=== PATIENT | female | born 1995 | race Caucasian/White ===

== ENCOUNTER 2018-01-29 06:38 | Day surgery (SDC) | payer OTHER ==
[~2018-01-29 06:38] MED LIST: LACTATED RINGERS 1000 ML IV PRN; LIDOCAINE 0.5% INJ-PF (5 MG/ML) 50 ML SDV SUBCUT PRN; SCOPOLAMINE HYDROBROMIDE 1.5 MG PATCH.TD72 TD PRN
[2018-01-29] MEDS ORDERED: MIDAZOLAM 2 MG/2 ML INJ ONE (07:04)
[2018-01-29] MEDS ORDERED: FENTANYL CITRATE INJ/PF 100 MCG/2 ML AMPUL ONE (07:04)
[2018-01-29] MEDS ORDERED: DEXAMETHASONE SOD PHOS INJ 10 MG/1 ML VIAL ONE (07:05)
[2018-01-29] MEDS ORDERED: PROPOFOL INJ 200 MG/20 ML VIAL IV ONE (07:05)
[2018-01-29] MEDS ORDERED: SUCCINYLCHOLINE CHLORIDE INJ 200 MG/10 ML VIAL ONE (07:05)
[2018-01-29] MEDS ORDERED: ONDANSETRON HCL INJ/PF 4 MG/2 ML SDV ONE (07:05)
[2018-01-29] MEDS ORDERED: HYDROMORPHONE HCL INJ/PF 2 MG/ML AMPULE ONE (07:05)
[2018-01-29] MEDS ORDERED: CEFAZOLIN 2 GM/D5W RTU 2 GM/50 ML RTUPB IV PRN (07:18)
[2018-01-29] MEDS ORDERED: BUPIVACAINE HCL 0.5%/EPI 1:200000 INJ 1.8 ML CARTRIDGE ONE (07:19)
[2018-01-29] MEDS ORDERED: ACETAMINOPHEN 100 ML IV ONE (08:08)
--- NOTE | 2018-01-30 14:39 | SURGICARE OPERATIVE REPORT E ---
[facility] Operative Report NAME: JANINE MG AGE: 22Y DATE OF SURGERY: 01/29/2018 ROOM: PREOPERATIVE DIAGNOSES: 1. 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 2. Chronic scalp pain. 3. Chronic headaches. POSTOPERATIVE DIAGNOSES: 1. 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 2. Chronic scalp pain. 3. Chronic headaches. OPERATION PERFORMED: Endoscopic removal of the right parietal calvarial osteoma with Info[employer] bone bur/shaver. SURGEON: CHRYSTAL BARROW D.O. ANESTHETIC: General endotracheal tube. ANESTHESIA STAFF: Young ESTIMATED BLOOD LOSS: 5 mL. FLUIDS: 850 mL. COMPLICATIONS: None. DRAINS: None. SPONGE COUNT: Verified. MATERIALS FORWARDED SPECIMEN: None. FINDINGS: 1. Right parietal area outer table of the calvarium osteoma raised measuring approximately 15 x 15 mm with dimensions. 2. Palpable scalp fullness in that area. INDICATIONS: This is a 22-year-old white female, active duty member, who was seen and evaluated in the [facility] office. The patient was referred for and she complained of a chronic history of right scalp fullness, chronic scalp pain in that area, and chronic headaches. The patient has noted that the nodule in that area has increased in size over time. The patient underwent CT imaging and was noted to have this osteoma finding. After extensive discussion with the patient, recommendation and plan was made to endoscopically address this area using bone shaving burs to remove the osteoma. The procedure and all of its risks and complications were all discussed in detail with the patient who has desired to have this removed to move beyond and resolve her chronic scalp pain and headaches. She voiced an understanding of the described surgical plan, agreed to proceed, and consent was obtained. DESCRIPTION OF PROCEDURE: The patient was taken to the main operating room and placed on the operating room table in the supine position. Appropriate monitors were placed. Using mask and IV access, general anesthesia was induced. The patient was next transorally intubated without difficulty. The patient was positioned and prepped for right scalp/head surgery. The hair and scalp in the area were prepped for surgery. There were planned incision sites marked. These areas were infiltrated with local anesthetic with epinephrine. At this point, the patient was prepped and draped for scalp/head surgery. The planned surgical incision sites were sharply incised down through to the level of the periosteum/bone. There was a soft tissue/scalp area that was elevated in a subperiosteal plane to completely expose the osteoma, which was clearly identified endoscopically without difficulty. At this point, a Vocal[employer] bone bur/shaver was used to remove the osteoma and contour the area without difficulty. Once complete, the area was thoroughly irrigated and there was reasonable hemostasis noted. The endoscopic and shaving equipment was removed. At this point, the 2 incision sites were reapproximated using Monocryl suture as the deep layer followed by placement of karen to reapproximate the skin margins. At this point, the area was cleaned followed by placement of bacitracin ointment, a Telfa dressing, and last a Fluff pressure dressing was applied. The patient was then returned to the anesthesia staff in stable condition and was allowed to emerge from general anesthesia. The patient was extubated in the main operating room and was then transported to the post-anesthesia recovery unit in stable condition. There were no complications. DICTATING PHYSICIAN: CHRYSTAL BARROW D.O. [id number] PHY#: [id number] ID: [id number] JOB#: [id number] ACCT: [id number] cc:CHRYSTAL BARROW D.O. >
== END 2018-01-29 11:01 | disposition home or self-care (01) ==
LOC: SC 06:38
PROVIDERS: ATTEND Otolaryngology
DX: D16.4 Benign neoplasm of bones of skull and face (principal); R51 Headache; F17.210 Nicotine dependence, cigarettes, uncomplicated
CPT/HCPCS: 64999; J2250; J3490; J1170; J0330; J2405; J2704; J1100; J0690; J0131; 190; J3010

== ENCOUNTER 2018-12-28 18:13 | Emergency (ER) | payer OTHER ==
--- NOTE | 2018-12-28 19:44 | ER Document Report ---
ED Medical Screen (RME) - General Chief Complaint: Abdominal Pain Stated Complaint: ABDOMINAL PAIN Time Seen by Provider: 12/28/18 19:42 Primary Care Provider: STEVE MONCADA DO [Primary Care Provider] - Follow up as needed Mode of Arrival: Ambulatory Information source: Patient, [facility] Records Notes: 23-year-old female presents with right lower quadrant pain that started 4 days prior to arrival. Patient states that the pain has progressively worsened and was seen at [facility] yesterday where they performed a CT which showed a "swollen appendix". She states that they advised her to return if pain worsens or she developed a fever which she reports she had earlier today of 101 but took Motrin for. I have greeted and performed a rapid initial assessment of this patient. A comprehensive ED assessment and evaluation of the patient, analysis of test results and completion of medical decision making process we will be contacted by additional ED providers. PHYSICAL EXAMINATION: Vital signs reviewed-tachycardic GENERAL: Well-appearing, well-nourished and in no acute distress. LUNGS: No respiratory distress Musculoskeletal: Normal range of motion NEUROLOGICAL: Normal speech, normal gait. PSYCH: Normal mood, normal affect. SKIN: Warm, Dry, normal turgor, no rashes or lesions noted. TRAVEL OUTSIDE OF THE [place] IN LAST 30 DAYS: No - HPI Onset: Other Onset/Duration: Persistent Quality of pain: Stabbing Severity: Moderate Associated Symptoms: Abdominal pain, Fever Exacerbated by: Movement Relieved by: Remaining still Similar symptoms previously: Yes Recently seen / treated by doctor: Yes - Related Data Smoking: Non-smoker Frequency of alcohol use: None Drug Abuse: None Allergies/Adverse Reactions: luis Allergy (Verified 01/25/18 11:00) rash pomegranate Allergy (Verified 01/25/18 11:00) rash Past Medical History - Past Medical History Cardiac Medical History: Denies: Hx Heart Attack, Hx Hypertension Pulmonary Medical History: Denies: Hx Asthma Neurological Medical History: Denies: Hx Cerebrovascular Accident, Hx Seizures GI Medical History: Denies: Hx Hepatitis, Hx Hiatal Hernia, Hx Ulcer Infectious Medical History: Denies: Hx Hepatitis Past Surgical History: Denies: Hx Hysterectomy, Hx Mastectomy, Hx Open Heart Surgery, Hx Pacemaker Doctor's Discharge - Discharge Referrals: STEVE MONCADA DO [Primary Care Provider] - Follow up as needed
[2018-12-28] MEDS ORDERED: MORPHINE SULFATE 10 MG/ML INJ IV ONE (19:45)
[2018-12-28] MEDS ORDERED: ONDANSETRON HCL INJ/PF 4 MG/2 ML SDV IV ONE ×2 (19:45→21:06)
[2018-12-28 20:18] LABS: ABSOLUTE BASOPHILS # (AUTO) 0.1 10^3/uL (0.0-0.2); ABSOLUTE EOSINOPHILS # (AUTO) 0.3 10^3/uL (0.0-0.6); ABSOLUTE NEUT (AUTO) 8.8 10^3/uL (1.7-8.2); BASOPHILS % (AUTO) 0.8 % (0-2); EOSINOPHILS % (AUTO) 2.3 % (0-6); LYMPHOCYTES % (AUTO) 22.7 % (13-45); MEAN CORPUSCULAR HEMOGLOBIN 29.1 pg (27.0-33.4); MEAN CORPUSCULAR HGB CONC 34.2 g/dL (32.0-36.0); MEAN CORPUSCULAR VOLUME 85 fl (80-97); MONOCYTES % (AUTO) 7.4 % (3-13); PLATELET COUNT 312 10^3/uL (150-450); RED BLOOD COUNT 4.82 10^6/uL (3.72-5.28); RED CELL DISTRIBUTION WIDTH 13.2 % (11.5-14.0); SEGMENTED NEUTROPHILS % (AUTO) 66.8 % (42-78); TOTAL CELLS COUNTED % (AUTO) 100 %; WHITE BLOOD COUNT 13.1 10^3/uL (4.0-10.5)
[2018-12-28 20:29] LABS: AMORPHOUS SEDIMENT,URINE TRACE /HPF; APPEARANCE,URINE CLOUDY; BILIRUBIN,URINE NEGATIVE (NEGATIVE); COLOR,URINE AMBER; GLUCOSE, URINE NEGATIVE (NEGATIVE); KETONES,URINE NEGATIVE (NEGATIVE); LEUKOCYTE ESTERASE,URINE NEGATIVE (NEGATIVE); NITRITE,URINE POSITIVE (NEGATIVE); PROTEIN,URINE NEGATIVE (NEGATIVE); URINE SPECIFIC GRAVITY 1.017; UROBILINOGEN,URINE NEGATIVE mg/dL (<2.0)
[2018-12-28 20:40] LABS: ALANINE AMINOTRANSFERASE 16 U/L (9-52); ALBUMIN 4.9 g/dL (3.5-5.0); ALKALINE PHOSPHATASE 100 U/L (38-126); ANION GAP 12 (5-19); ASPARTATE AMINO TRANSFERASE 19 U/L (14-36); BILIRUBIN,DIRECT 0.2 mg/dL (0.0-0.4); BILIRUBIN,TOTAL 0.3 mg/dL (0.2-1.3); BLOOD UREA NITROGEN 10 mg/dL (7-20); C-REACTIVE PROTEIN 11.9 mg/L (<10.0); CALCIUM 10.2 mg/dL (8.4-10.2); CARBON DIOXIDE 25 mmol/L (22-30); CHLORIDE 102 mmol/L (98-107); GLUCOSE 79 mg/dL (75-110); POTASSIUM 5.1 mmol/L (3.6-5.0); SODIUM 139.1 mmol/L (137-145); TOTAL PROTEIN 8.3 g/dL (6.3-8.2)
[2018-12-28] MEDS ORDERED: HYDROMORPHONE HCL INJ/PF 2 MG/ML AMPULE IV ONE (21:04)
[2018-12-28] MEDS ORDERED: NORMAL SALINE 1000 ML 1,000 ML IV ONE (21:04)
--- NOTE | 2018-12-28 21:05 | ER Document Report ---
ED GI/ - General Chief Complaint: Abdominal Pain Stated Complaint: ABDOMINAL PAIN Time Seen by Provider: 12/28/18 19:42 Primary Care Provider: STEVE MONCADA DO [NO LOCAL MD] - Follow up as needed Mode of Arrival: Ambulatory Notes: 23-year-old female patient, no significant past medical history to the emergency department complaining of a one-week history of worsening right lower quadrant pain. Fever at home. Loss of appetite. Pain is getting worse. Was seen yesterday at [facility] where she had a pelvic exam, labs, CT scan of the abdomen and pelvis, surgical consult. Was told that her appendix did not look 100% normal but that it was "not ready to come out yet". She was instructed to go back for recheck of her symptoms are getting worse. States that she did not feel comfortable going back to the [facility] so came here instead. States that the pain is gotten severe. TRAVEL OUTSIDE OF THE [place] IN LAST 30 DAYS: No - HPI Patient complains to provider of: Abdominal pain Onset: Last week Timing/Duration: Gradual, Worse Quality of pain: Dull, Throbbing Severity at maximum: Moderate Severity in ED: Moderate Pain Level: 3 Location: RLQ Vaginal bleeding (Compared to normal period): None Menstrual period history: denies: Abnormal, Irregular, Missed, Sexual history: Active. denies: New partner, Multiple partners Associated symptoms: Nausea Exacerbated by: Standing, Movement Relieved by: Denies Similar symptoms previously: Yes Recently seen / treated by doctor: Yes - Related Data Allergies/Adverse Reactions: luis Allergy (Verified 01/25/18 11:00) rash pomegranate Allergy (Verified 01/25/18 11:00) rash Past Medical History - General Information source: Patient, [facility] Records - Social History Smoking Status: Current Every Day Smoker Chew tobacco use (# tins/day): No Frequency of alcohol use: None Drug Abuse: None Family History: Reviewed & Not Pertinent Patient has suicidal ideation: No Patient has homicidal ideation: No - Past Medical History Cardiac Medical History: Denies: Hx Heart Attack, Hx Hypertension Pulmonary Medical History: Denies: Hx Asthma Neurological Medical History: Denies: Hx Cerebrovascular Accident, Hx Seizures Renal/ Medical History: Denies: Hx Peritoneal Dialysis GI Medical History: Denies: Hx Hepatitis, Hx Hiatal Hernia, Hx Ulcer Infectious Medical History: Denies: Hx Hepatitis Past Surgical History: Denies: Hx Hysterectomy, Hx Mastectomy, Hx Open Heart Surgery, Hx Pacemaker Review of Systems - Review of Systems Notes: Constitutional: denies: Chills, Diaphoresis, +Fever, EENT: denies: Eye discharge, Blurred vision, Tearing, Double vision, Nose congestion, Nose discharge, Throat swelling, Mouth pain Cardiovascular: denies: Palpitations, Heart racing, Orthopnea, Dyspnea, Chest pain Respiratory: denies: Cough, Hurts to breathe, Wheezing, Shortness of breath Gastrointestinal: Abdominal pain, right lower quadrant abdominal pain, nausea Genitourinary: denies: Burning, Dysuria, Discharge, Frequency, Flank pain, Hematuria Musculoskeletal: denies: Joint pain, Joint swelling, Muscle pain, Muscle stiffness, back pain Hematologic/Lymphatic: denies: Anemia, Easy bleeding, Easy bruising, Blood clots Neurological/Psychological: denies: Confusion, Dementia, Depression, Loss of con sciousness Skin: No lesions, no masses, no skin breakdown, no abscesses Physical Exam - Vital signs Vitals: Temp Pulse Resp BP Pulse Ox 98.2 F 83 19 97/65 L 100 12/28/18 21:16 12/28/18 21:16 12/28/18 21:16 12/28/18 21:16 12/28/18 21:16 Interpretation: Normal - General General appearance: Appears well, Alert - HEENT Head: Normocephalic, Atraumatic Eyes: Normal Pupils: PERRL - Respiratory Respiratory status: No respiratory distress Chest status: Nontender Breath sounds: Normal Chest palpation: Normal - Cardiovascular Rhythm: Regular Heart sounds: Normal auscultation Murmur: No - Abdominal Inspection: Normal Distension: No distension Bowel sounds: Normal Tenderness: Tender, McBurney's point, Guarding, Rebound Organomegaly: No organomegaly - Back Back: Normal, Nontender - Extremities General upper extremity: Normal inspection, Nontender, Normal color, Normal ROM, Normal temperature General lower extremity: Normal inspection, Nontender, Normal color, Normal ROM, Normal temperature, Normal weight bearing. No: Margarita's sign - Neurological Neuro grossly intact: Yes Cognition: Normal Orientation: AAOx4 Duncan Coma Scale Eye Opening: Spontaneous [place] Coma Scale Verbal: Oriented [place] Coma Scale Motor: Obeys Commands Duncan Coma Scale Total: 15 Speech: Normal Motor strength normal: LUE, RUE, LLE, RLE Sensory: Normal - Psychological Associated symptoms: Normal affect, Normal mood - Skin Skin Temperature: Warm Skin Moisture: Dry Skin Color: Normal Course - Re-evaluation Re-evalutation: 12/28/18 21:38 Patient has an elevated WBC count at 13,000, reported fever at home, symptoms getting worse over the last week with pain in the right lower quadrant, recent CT scan yesterday which reportedly was slightly abnormal for the appendix. Today presents with worsening pain in the right lower quadrant with guarding and rebound. Patient had a pelvic exam yesterday and was reportedly normal. Will page surgery at this time. 12/28/18 21:[address] Castaneda 12/28/18 22:26 I have spoken to [address] Kay and he does not want a repeat CT scan of the abdomen and pelvis with oral and IV contrast. I have started patient on antibi otics, fluids, pain medicine, nausea medicine. I have sent patient over to Dr. Lopez for review of the CT scan and paging of the surgeon when results are back. Laboratory 12/28/18 12/28/18 12/28/18 19:55 19:56 19:56 WBC 13.1 H RBC 4.82 Hgb 14.0 Hct 41.0 MCV 85 MCH 29.1 MCHC 34.2 RDW 13.2 Plt Count 312 Seg Neutrophils % 66.8 Lymphocytes % 22.7 Monocytes % 7.4 Eosinophils % 2.3 Basophils % 0.8 Absolute Neutrophils 8.8 H Absolute Lymphocytes 3.0 Absolute Monocytes 1.0 Absolute Eosinophils 0.3 Absolute Basophils 0.1 Sodium 139.1 Potassium 5.1 H Chloride 102 Carbon Dioxide 25 Anion Gap 12 BUN 10 Creatinine 0.75 Est GFR ( Amer) > 60 Est GFR (Non-Af Amer) > 60 Glucose 79 Calcium 10.2 Total Bilirubin 0.3 Direct Bilirubin 0.2 Neonat Total Bilirubin Not Reportable Neonat Direct Bilirubin Not Reportable Neonat Indirect Bili Not Reportable AST 19 ALT 16 Alkaline Phosphatase 100 C-Reactive Protein 11.9 H Total Protein 8.3 H Albumin 4.9 Urine Color ALDO Urine Appearance CLOUDY Urine pH 7.0 Ur Specific [place] 1.017 Urine Protein NEGATIVE Urine Glucose (UA) NEGATIVE Urine Ketones NEGATIVE Urine Blood NEGATIVE Urine Nitrite POSITIVE H Urine Bilirubin NEGATIVE Urine Urobilinogen NEGATIVE Ur Leukocyte Esterase NEGATIVE Urine WBC (Auto) 1 Urine RBC (Auto) 0 Urine Bacteria (Auto) 1+ Squamous Epi Cells Auto 2 Amorphous Sediment Auto TRACE Urine Mucus (Auto) FEW Urine Ascorbic Acid NEGATIVE Urine HCG, Qual NEGATIVE - Vital Signs Vital signs: Temp Pulse Resp BP Pulse Ox 98.2 F 83 19 97/65 L 100 12/28/18 21:16 12/28/18 21:16 12/28/18 21:16 12/28/18 21:16 12/28/18 21:16 - Laboratory Result Diagrams: 12/28/18 19:56 12/28/18 19:56 Laboratory results interpreted by me: 12/28/18 12/28/18 12/28/18 19:55 19:56 19:56 WBC 13.1 H Absolute Neutrophils 8.8 H Potassium 5.1 H C-Reactive Protein 11.9 H Total Protein 8.3 H Urine Nitrite POSITIVE H Discharge - Discharge Clinical Impression: Right lower quadrant abdominal pain Referrals: STEVE MONCADA DO [NO LOCAL MD] - Follow up as needed
[2018-12-28] MEDS ORDERED: CEFOXITIN INJ 1 GM VIAL IV ONE (21:45)
[2018-12-29] MEDS ORDERED: HYDROMORPHONE HCL INJ/PF 2 MG/ML AMPULE IV ONE (00:25)
--- NOTE | 2018-12-29 00:33 | RADIOLOGY REPORT (SQ) ---
EXAM DESCRIPTION: CT ABDOMEN PELVIS WITH IV CONTRAST COMPLETED DATE/TME: 12/28/2018 00:00 CLINICAL HISTORY: 23 years, Female, rlq abd pain COMPARISON: None. TECHNIQUE: 397 Images stored on PACS. All CT scanners at this facility use dose modulation, iterative reconstruction, and/or weight based dosing when appropriate to reduce radiation dose to as low as reasonably achievable (ALARA). [facility]: Dose Right [facility]: CareDose [facility]: Dose Right [facility]: Teradose 4D [facility]: Smart [place] LIMITATIONS: None. FINDINGS: Limited evaluation of the lung bases is unremarkable. Osseous structures are grossly intact. The liver, spleen, adrenal glands, pancreas, kidneys are unremarkable. Gallbladder is present. No evidence for bowel obstruction. Abundant stool in the colon. Normal appendix. No free air or free fluid. IMPRESSION: Abundant stool in the colon. Remainder unremarkable TECHNICAL DOCUMENTATION: Quality ID # 436: Final reports with documentation of one or more dose reduction techniques (e.g., Automated exposure control, adjustment of the mA and/or kV according to patient size, use of iterative reconstruction technique) copyright 2011 [employer]- All Rights Reserved
--- NOTE | 2018-12-29 03:28 | RADIOLOGY REPORT (SQ) ---
EXAM DESCRIPTION: US TRANSVAGINAL COMPLETED DATE/TME: 12/29/2018 01:14 CLINICAL HISTORY: 23 years, Female, right sided pain COMPARISON: CT from today's date TECHNIQUE: Transverse and longitudinal transvaginal sonographic images of the pelvis LIMITATIONS: None. FINDINGS: Uterus measures 7.7 x 3.1 x 4.1 cm. Endometrium measures 3.1 mm. Myometrium is homogenous. Right ovary measures 3.2 x 2.3 x 2.1 cm, left ovary 2.6 x 1.8 x 3.2 cm. Doppler and spectral analysis with color flow shows arterial and venous flow to both ovaries. No solid adnexal mass. No free fluid. IMPRESSION: Unremarkable exam copyright 2010 [employer]- All Rights Reserved
[2018-12-29] MEDS ORDERED: HYDROCODONE/ACETAMINOPHEN 5-325 MG (6 TAB/ER DISP) PO PRN (04:00)
--- NOTE | 2018-12-29 04:04 | PDOC CONSULTATION ---
Consultation Consult Date: 12/29/18 Consult reason:: RLQ pain History of Present Illness Patient complains of: RLQ pain x 4 days History of Present Illness: JANINE MG is a 23 year old female with a hx of depression, who has recently taken herself off Prozac due to worsening of her depression symptoms. She comes to the ED with a 4 day hx of RLA abdominal pain, worsened by motion. She denies nausea, vomiting, change of bowel habits, fever. She went to the [facility] yesterday woith similar complaints and a CT scan A/P was done and a qu estionable enlarged appendix and told to return if her symptoms would have become worse. Past Medical History Cardiac Medical History: Denies: Myocardial Infarction, Hypertension Pulmonary Medical History: Denies: Asthma Neurological Medical History: Denies: Seizures GI Medical History: Denies: Hepatitis, Hiatal Hernia Hematology: Denies: Anemia, Sickle Cell Disease Past Surgical History Past Surgical History: Denies: Amputation, Hysterectomy, Mastectomy, Pacemaker Social History Smoking Status: Current Every Day Smoker Family History Family History: Reviewed & Not Pertinent Parental Family History Reviewed: Yes - CAD Children Family History Reviewed: No Sibling(s) Family History Reviewed.: No Medication/Allergy Home Medications: Aspirin/Acetaminophen/Caffeine [Excedrin Migraine Caplet] 1 tab PO PRN PRN 01/25/18 Diphenhydramine HCl [Benadryl Allergy] 1 tab PO PRN PRN 01/25/18 Amox Tr/Potassium Clavulanate [Augmentin 875-125 mg Tablet] 1 tab PO BID 01/29/18 Bacitracin 1 drop TOP BID 01/29/18 Etonogestrel [Nexplanon] 68 mg SQ .EVERY 3 YRS 01/29/18 Hydrocodone/Acetaminophen [[place]ster 5-325 mg Tablet] 1 - 2 tab PO PRN 01/29/18 Ondansetron HCl [Zofran 4 mg Tablet] 1 tab PO PRN 01/29/18 Promethazine HCl [Phenergan 25 mg Tablet] 0.5 tab PO PRN 01/29/18 Allergies/Adverse Reactions: luis Allergy (Verified 01/25/18 11:00) rash pomegranate Allergy (Verified 01/25/18 11:00) rash Physical Exam Vital Signs: Temp Pulse Resp BP Pulse Ox 97.9 F 89 22 H 147/84 H 100 12/29/18 00:23 12/29/18 00:23 12/29/18 00:23 12/29/18 00:23 12/29/18 00:23 Intake & Output 12/27/18 12/28/18 12/29/18 06:59 06:59 07:59 Intake Total 1000 Balance 1000 Weight 74.843 kg General appearance: PRESENT: mild distress, other - tearful Head exam: PRESENT: atraumatic Eye exam: PRESENT: EOMI Mouth exam: PRESENT: moist, neck supple Respiratory exam: PRESENT: clear to auscultation bettina Cardiovascular exam: PRESENT: RRR GI/Abdominal exam: PRESENT: soft, tenderness - in the RLW, above the inguinal ligament at the level of and 4 fingerbreath medial to the umbilicus, other - no bulge or tenderness appreciated in the right inguinal canal or right groin Rectal exam: PRESENT: deferred Extremities exam: PRESENT: full ROM Musculoskeletal exam: PRESENT: full ROM Neurological exam: PRESENT: alert Psychiatric exam: PRESENT: depressed Results Laboratory Results: 12/28/18 19:56 12/28/18 19:56 12/28/18 12/28/18 12/28/18 19:55 19:56 19:56 WBC 13.1 H RBC 4.82 Hgb 14.0 Hct 41.0 MCV 85 MCH 29.1 MCHC 34.2 RDW 13.2 Plt Count 312 Seg Neutrophils % 66.8 Lymphocytes % 22.7 Monocytes % 7.4 Eosinophils % 2.3 Basophils % 0.8 Absolute Neutrophils 8.8 H Absolute Lymphocytes 3.0 Absolute Monocytes 1.0 Absolute Eosinophils 0.3 Absolute Basophils 0.1 Sodium 139.1 Potassium 5.1 H Chloride 102 Carbon Dioxide 25 Anion Gap 12 BUN 10 Creatinine 0.75 Est GFR ( Amer) > 60 Est GFR (Non-Af Amer) > 60 Glucose 79 Calcium 10.2 Total Bilirubin 0.3 AST 19 ALT 16 Alkaline Phosphatase 100 C-Reactive Protein 11.9 H Total Protein 8.3 H Albumin 4.9 Urine Color ALDO Urine Appearance CLOUDY Urine pH 7.0 Ur Specific [place] 1.017 Urine Protein NEGATIVE Urine Glucose (UA) NEGATIVE Urine Ketones NEGATIVE Urine Blood NEGATIVE Urine Nitrite POSITIVE H Ur Leukocyte Esterase NEGATIVE Urine WBC (Auto) 1 Urine RBC (Auto) 0 Impressions: Abdomen/Pelvis CT 12/28/18 00:00 IMPRESSION: Abundant stool in the colon. Remainder unremarkable TECHNICAL DOCUMENTATION: Quality ID # 436: Final reports with documentation of one or more dose reduction techniques (e.g., Automated exposure control, adjustment of the mA and/or kV according to patient size, use of iterative reconstruction technique) copyright 2010 [employer]- All Rights Reserved Transvaginal US 12/29/18 01:14 IMPRESSION: Unremarkable exam copyright 2010 [employer]- All Rights Reserved Assessment & Plan - Plan Summary Plan Summary: A/ RLQ abdominal pain; exam negative for pinpoint peritonitis or bulge in the right groin, therefore both appendicitis and right inguinal hernia are excluded Negative Ct scan A/P Negative transvaginal pelvic US Negative UA and test Mild leucocytosis (13K) Negative remaining blood work P/ No acute General Surgery issues identified and no intervention planned Patient can be safely discharged to home by my viewpoint based on the above tests, blood work, UA and hystory/Physical exam Patient to follow up with her PCP in 2 weeks.
[2018-12-29 04:08] VITALS: BP 113/70
== END 2018-12-29 04:23 | disposition home or self-care (01) ==
LOC: ER 18:13
DX: R10.31 Right lower quadrant pain (principal); R82.71 Bacteriuria; D72.829 Elevated white blood cell count, unspecified; R63.0 Anorexia; R11.0 Nausea; F17.200 Nicotine dependence, unspecified, uncomplicated; R50.9 Fever, unspecified; Z91.018 Allergy to other foods; Z97.5 Presence of (intrauterine) contraceptive device
CPT/HCPCS: 96376; 99285; 96361; 96375; 96365; 36415; 87040; 87086; 82962; 85025; 81025; 86140; 87088; 80053; 81001; 87186; 76830; 93976; 74177; J0694; J2270; J1170 ×2; J2405; J7030